=== PATIENT | male | born 1970 | race Hispanic/Latino ===

== ENCOUNTER 2021-03-13 14:50 | Emergency (ER) | payer OTHER ==
[~2021-03-13] VITALS: Ht 170.2 cm; Wt 85.7 kg
[2021-03-13 14:52] VITALS: BP 145/96
[2021-03-13] MEDS ORDERED: ZOSYN 3.375GM+NS 50ML 50 ML IV STA (17:28)
[2021-03-13] MEDS ORDERED: TETANUS/DIPHTHERIA TOXOID [ADULT] 0.5 ML VIAL IM ONE (17:30)
[2021-03-13] MEDS ORDERED: 0.9%NACL 1000ML 1,000 ML IV ONE (17:30)
[2021-03-13] MEDS ORDERED: 0.9%NACL 50ML 50 ML IV ONE (18:01)
[2021-03-13 18:07] LABS: BASOPHILS % (AUTO) 0.5 % (0.0-5.0); EOSINOPHILS % (AUTO) 2.2 % (0.0-8.0); HEMATOCRIT 44.4 % (42-54); LYMPHOCYTES % (AUTO) 25.1 % (21.0-51.0); MEAN CORPUSCULAR HEMOGLOBIN 28.4 pg (27.0-33.0); MEAN CORPUSCULAR HGB CONC 33.3 g/dL (32.0-36.0); MEAN CORPUSCULAR VOLUME 85.1 fL (79-99); MONOCYTES % (AUTO) 8.9 % (3.0-13.0); PLATELET COUNT (AUTO) 227 K/uL (130-400); RED BLOOD CELL COUNT(AUTO) 5.22 MIL/uL (4.50-6.20); RED CELL DISTRIBUTION WIDTH 12.5 % (11.0-15.5)
[2021-03-13 18:19] LABS: INR 1.01 (0.85-1.15)
[2021-03-13 18:21] LABS: PARTIAL THROMBOPLASTIN TIME 26.1 SEC (26.3-35.5)
[2021-03-13] MEDS ORDERED: KETOROLAC 30MG VIAL (30MG/ML) IV ONE (18:30)
[2021-03-13 18:36] VITALS: BP 135/78
[2021-03-13 18:36] LABS: CREATININE 0.9 mg/dL (0.5-1.5); POTASSIUM 3.9 mmol/L (3.5-5.1)
[2021-03-13 18:41] LABS: ALBUMIN 3.6 g/dL (3.5-5.0); BILIRUBIN,TOTAL 0.6 mg/dL (0.2-1.0); TOTAL PROTEIN, SERUM 7.7 g/dL (6.0-8.3)
[2021-03-13] MEDS ORDERED: IBUP-2070 PO (19:11)
[2021-03-13] MEDS ORDERED: AMOX-429 PO (19:11)
[2021-03-13] MEDS ORDERED: MUPI22O TP (19:11)
[2021-03-13] MEDS ORDERED: SULF1TAB42 PO (19:11)
[2021-03-13 19:38] VITALS: BP 129/74
== END 2021-03-13 19:39 | disposition home or self-care (01) ==
LOC: EDH 14:50
DX: S90.572A Other superficial bite of ankle, left ankle, initial encounter (principal); L03.116 Cellulitis of left lower limb; W54.0XXA Bitten by dog, initial encounter; Y93.89 Activity, other specified; Y92.89 Other specified places as the place of occurrence of the external cause; Y99.8 Other external cause status
CPT/HCPCS: 36415; 73610; 80053; 82550; 83605; 85025; 85610; 85730; 87040 ×2; 87070; 87076; 90471; 90714; 96365; 96375; 99284; J1885; J2543; J7030; 96374

== ENCOUNTER 2025-04-01 12:00 | Emergency (ER) | payer BC, OTHER ==
[~2025-04-01] VITALS: Ht 165.1 cm; Wt 98.4 kg
[~2025-04-01 12:00] MED LIST: AMOX-429 PO; IBUP-1492 PO; MUPI22O TP; SULF1TAB42 PO
[2025-04-01] MEDS ORDERED: METH-662 PO (12:06)
[2025-04-01] MEDS ORDERED: NAPR-1194 PO (12:06)
--- NOTE | 2025-04-01 12:06 | ERN ---
General Chief Complaint: Shoulder Injury/Pain Stated Complaint: RT SHOULDER PAIN Time Seen by MD: 12:02 Source: patient History of Present Illness Initial Comments Patient is a 54-year-old gentleman coming in complaining of right shoulder pain. Per patient he woke up like this. He states that he has problems trying to elevated right shoulder due to the pain. Allergies: Coded Allergies: No Known Drug Allergies (Unverified Allergy, Unknown, 03/13/21) Home Meds Active Scripts Ibuprofen (Ibuprofen) 600 Mg Tablet, 600 MG PO Q6H PRN for PAIN for 10 Days, #15 TAB Prov:MERCEDEZ RUTH 03/13/21 Mupirocin (Bactroban 2% Oint) 1 Appl/Gm Oint, 1 APPL TP BID for 10 Days, #30 G Prov:MERCEDEZ RUTH 03/13/21 Sulfamethoxazole/Trimethoprim (Bactrim Ds Tablet) 1 Each Tablet, 1 TAB PO BID for 10 Days, #30 TAB Prov:MERCEDEZ RUTH 03/13/21 Amoxicillin/Potassium Clav (Augmentin 875-125 Tablet) 1 Each Tablet, 1 EACH PO TID for 10 Days, #30 TAB Prov:MERCEDEZ RUTH 03/13/21 Past Medical History Past Medical History: No Pertinent History, Hypertension ROS Dictation CONSTITUTIONAL: No chills, no fever, no weakness, no diaphoresis, no malaise. HEAD/FACE: No signs of trauma. EENT: No eye pain, no blurred vision, no tearing, no double vision, no ear pain, no ear discharge, no nose pain, no nasal congestion, no throat pain, no throat swelling, no mouth pain. RESPIRATORY: No cough, no orthopnea, no SOB, no stridor, no wheezing. CARDIOVASCULAR: No chest pain, no edema, no palpitations, no syncope. GASTROINTESTINAL/ABDOMINAL: No abdominal pain, no constipation, no diarrhea, no nausea, no vomiting. GENITOURINARY: No abnormal discharge, no dysuria, no frequent urination, no hematuria. No complaints of pain in the genitals. MUSCULOSKELETAL: No back pain, no gout, no joint pain, no joint swelling, muscle pain, no muscle stiffness, no neck pain. INTEGUMENTARY: No change in color, no change in hair/nails, no dryness, no lesion, no lumps, no rash. NEUROLOGICAL/PSYCH: No anxiety, not depressed, no emotional problem, no headache, no numbness, no pre-existing deficit, no history of seizures, no tremors, no weakness. HEMATOLOGIC/LYMPHATIC: Not anemic, no history of blood clots, no apparent bleed ing, no bruising, glands not swollen. All Systems Negative, Except as Noted. Physical Exam Physical Exam Dictation VITAL SIGNS: Reviewed. GENERAL APPEARANCE: Alert, oriented x3, no acute distress, obese. HEAD AND FACE: Non-traumatic. EYES: PERRL, pink conjunctivas, eyelid no trauma, anterior chamber clear. EARS: Pinnas intact and no signs of trauma or erythema. Ear canals clear and no discharge. TMs no erythema. NOSE: No discharge, no bleeding. OROPHARYNX: Mouth normal, teeth no caries, tongue pink. Pharynx clear, no erythema. Tonsils no exudates, no abscesses noted. Mucous membrane moist. NECK: Supple, non-tender, no thyromegaly, no masses, no JVD, no bruits. BREAST: Deferred. CHEST: No tenderness, no crepitus, no paradoxical movement, no retractions. LUNGS: Clear, well-ventilated, symmetric, no rales, no wheezing, no rhonchi, no stridor, good breath sounds bilaterally. HEART: Regular rate, regular rhythm, no murmur, no gallops. VASCULAR: No peripheral edema. ABDOMEN: Soft, positive bowel sounds, nondistended, no guarding, nontender, no rebound, no masses no hepatomegaly, no splenomegaly, no Buckner's sign, no hernias. RECTAL: Deferred. GENITAL: Deferred. NEUROLOGICAL: Normal speech, gross motor function intact, gross sensory function intact. MUSCULOSKELETAL: Neck nontender, full range of motion, back nontender, full range of motion. EXTREMITIES: Nontender, full range of motion. Right deltoid tenderness on palpation pain on abduction SKIN: Color pink, dry, no turgor, no rash, no lacerations, no abrasions, no contusions. LYMPHATICS: Deferred. Results Laboratory and Microbiology Labs Reviewed?: Yes MDM MDM: Differential diagnosis: Shoulder strain, muscle tear, shoulder dislocation, Rationale: Tests considered and ordered secondary to shared decision making include: Previous outside records reviewed: Old ER visits. Risk of complication and/or morbidity or mortality of patient management: None Medications-Per medication reconciliation Need for hospitalization: Patient does not meet criteria for hospitalization. Need for emergency major/minor surgery: No Patient is a 54-year-old gentleman coming in complaining of right shoulder pain. On visual inspection joint is respected no deformity noted. Patient is able to elevate right arm with some discomfort in the deltoid region. Shoulder sling will be placed medication will be given for an inflammation. I did advised him appropriate follow up with PCP in 1-2 days. ED Course Orders Procedure Category Date Status Time 12 Lead Ekg Tracing- EKG 04/01/25 Transmitted Technical 12:02 Ketorolac PHA 04/01/25 Transmitted Tromethamine 30mg/Ml 12:30 Orphenadrine Citrate PHA 04/01/25 Transmitted (Norflex) 12:30 DX & DISP Disposition: Discharge Departure Impression: Primary Impression: Shoulder strain Additional Impression: Strain of deltoid muscle Condition: Stable Scripts Methocarbamol (Robaxin) 750 Mg Tab 1 TAB PO BID for 5 Days, #10 TAB 0 Refills Prov: JUAN JOSE AGUSTIN MD 04/01/25 Naproxen (Naproxen) 500 Mg Tablet 1 TAB PO BID for pain for 7 Days, #14 TAB 0 Refills Prov: JUAN JOSE AGUSTIN MD 04/01/25 Additional Instructions: FOLLOW-UP WITH PRIMARY CARE PROVIDER IN 1 TO 2 DAYS. TAKE MEDICATIONS DIRECTED HERE IN THE EMERGENCY ROOM. OKAY TO CONTINUE HOME MEDICATIONS UNLESS OTHERWISE DISCUSSED DURING YOUR VISIT IN THE EMERGENCY ROOM TODAY. RETURN TO YOUR NEAREST EMERGENCY ROOM IF SYMPTOMS WORSEN OR IF THERE IS NO IMPROVEMENT. CALL 911 IF YOU NEED IMMEDIATE ASSISTANCE. TAKE TYLENOL [id number] NEEDED AND IF NO CONTRAINDICATIONS ARE PRESENT. INCREASE ORAL HYDRATION. A WOUND CULTURE OR URINE CULTURE WAS ORDERED HERE IN THE EMERGENCY ROOM DEPARTMENT PLEASE FOLLOW-UP WITH PRIMARY CARE PROVIDER AND ADVISE THEM TO GET REPORTS FROM OUR FACILITY. IF YOU HAD ANY OLY WRAP/SPLINTS THAT WERE APPLIED HERE, PLEASE DO NOT REMOVE THEM UNTIL YOU SEE YOUR PRIMARY CARE OR SPECIALTY. Referrals: Referrals: SELF,REFERRAL (PCP) MONE MAGALLANES MD Time of Disposition: 12:05 JUAN JOSE AGUSTIN MD Apr 01, 2025 12:06
--- NOTE | 2025-04-01 12:17 | NUR ---
SLING APPLIED TO THE RIGHT SHOULDER, PATIENT TOLERATED WELL, PULSES PRESENT AND STRONG, CAP REFILL <3./FAVIAN
[2025-04-01] MEDS: ORPHENADRINE 60MG/2ML IM ONE (12:21)
[2025-04-01 12:22] VITALS: BP 165/95; PULSE 62; RESP 16; TEMP 98.1; O2SAT 98
--- NOTE | 2025-04-01 12:52 | EKG ---
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
== END 2025-04-01 12:28 | disposition home or self-care (01) ==
LOC: EDH 12:00
DX: S46.911A Strain of unspecified muscle, fascia and tendon at shoulder and upper arm level, right arm, initial encounter (principal); Z79.899 Other long term (current) drug therapy; X58.XXXA Exposure to other specified factors, initial encounter; Y93.89 Activity, other specified; Y92.89 Other specified places as the place of occurrence of the external cause; Y99.8 Other external cause status
CPT/HCPCS: 99284; 96372 ×2; 93005; J1885; J2360